=== PATIENT | female | born 1945 | race Two or more races ===

== ENCOUNTER 2019-11-26 05:50 | Day surgery (SDC) | payer OTHER ==
[~2019-11-26 05:50] MED LIST: BISOPROLOL FUMA10 MG PO; COZAAR100 MG PO; LUMIGAN2.5 M1 OP; METFORMIN HCL500 MG PO; PRADAXA150 MG PO; SYNTHROID125 MCG PO; XARELTO20 MG PO
== END 2019-11-26 12:35 | disposition home or self-care (01) ==
LOC: CIR.AMB 05:50
PROVIDERS: ATTEND Orthopaedic Surgery
DX: M75.01 Adhesive capsulitis of right shoulder (principal); Z20.828 Contact with and (suspected) exposure to other viral communicable diseases